=== PATIENT | female | born 1995 | race Two or more races ===

== ENCOUNTER 2019-03-10 13:28 | Emergency (ER) | payer OTHER ==
[~2019-03-10] VITALS: Ht 162.6 cm; Wt 56.0 kg
[2019-03-10] MEDS ORDERED: IBUPROFEN 600MG TABLET PO STA (15:04)
[2019-03-10 16:27] VITALS: BP 118/70
== END 2019-03-10 16:28 | disposition home or self-care (01) ==
LOC: ER 13:28
DX: S63.613A Unspecified sprain of left middle finger, initial encounter (principal); F12.10 Cannabis abuse, uncomplicated; W19.XXXA Unspecified fall, initial encounter; Y93.18 Activity, surfing, windsurfing and boogie boarding; Y92.832 Beach as the place of occurrence of the external cause
CPT/HCPCS: 73140; 99283